=== PATIENT | female | born 1940 | race Caucasian/White ===

== ENCOUNTER → 2016-12-30 | Outpatient (CLI) | payer OTHER ==
--- NOTE | 2016-12-30 09:38 | MA ---
Screening Digital Mammogram With iCAD Indication: Routine screening. Mother diagnosed with breast cancer at the age of 60. Technique: Standard cephalocaudal and mediolateral oblique projections are obtained. This examinati on is processed by the iCAD computer-aided detection system. Comparison: November 2015, November 2014, November 2013, and November 2011 Breast density: Type B. Findings: CAD was reviewed. No suspicious microcalcifications, mass, or architectural distortion. Impression: Negative mammogram BI-RADS: 1 - Negative Recommendation: Routine screening is recommended in one year. [facility] will send a result letter to the patient. Negative mammography should not preclude additional workup of a clinically suspicious finding. The patient's information is entered into a reminder system with a target due date for her next mammo gram.
== END ==
LOC: BMCIMAGING 07:51
DX: Z12.31 Encounter for screening mammogram for malignant neoplasm of breast (principal); Z80.3 Family history of malignant neoplasm of breast
CPT/HCPCS: G0202

== ENCOUNTER 2017-08-07 11:33 | Emergency (ER) | payer OTHER ==
--- NOTE | 2017-08-07 11:57 | CPEKG ---
Heart Rate: 57 RR Interval: 1053 P-R Interval: 172 QRSD Interval: 144 QT Interval: 448 QTC Interval: 437 P [place]: 5 QRS [place]: 26 T Wave [place]: -10 EKG Severity - ABNORMAL ECG - EKG Impression: SINUS RHYTHM EKG Impression: RIGHT BUNDLE BRANCH BLOCK Electronically Signed By: Reilly Nixon 09-Aug-2017 09:50:55
--- NOTE | 2017-08-07 12:00 | EDPHY ---
HPI/HX/ROS/PE/MDM Narrative: CHIEF COMPLAINT:Imbalance, hypertension HPI: This patient is a 76 year old female arriving with her complaining of multiple episodes of imbalance and malaise onset one week ago. One week ago, she woke up at night and got out of bed feeling very unbalanced, and felt malaise the next day. This resolved by the afternoon. She has had similar feelings on other mornings since. Last night, she woke up feeling quite dizzy again, which she describes as a feeling of imbalance and lightheadedness. She denies a sensation of the room spinning. She has history of heart disease and noted her blood pressure was 154/115, which is high for her. She spoke with her primary care provider, who recommended she present for evaluation. She was able to walk in today, and denies falling at any point due to her imbalance. She denies chest pain, shortness of breath, nausea, vomiting, fever, or other recent illness. REVIEW OF SYSTEMS: Aside from elements discussed in the HPI, a comprehensive 10-point review of systems was reviewed and is negative. PMH: Stent placement. SOCIAL HISTORY: Retired. Formerly worked as an specialist physicians. . at bedside. PHYSICAL EXAM: General:Patient is alert, in no acute distress. ENT:Eyes are normal to inspection. ENT inspection normal. Neck: Normal inspection. Full range of motion. Respiratory:No respiratory distress. Breath sounds normal bilaterally. Cardiovascular: Regular rate and rhythm. Strong peripheral pulses. Normal cap refill. Abdomen:The abdomen is nontender to palpation. There are no peritoneal signs. There are normal bowel sounds. Back: Normal to inspection. No tenderness to palpation. Skin: Normal color. No rash. Warm and dry. Extremities: Normal appearance. Full range of motion. Neuro: Oriented x3. Normal motor function. Normal sensory function. No pronator drift. Normal [id number]. Normal [id number]. No dysdiadochokinesia. ED Course: 76 year old female presents with one week history of episodes of feeling imbalance and lightheadedness beginning in the middle of the night, generally resolved by afternoon. Physical exam unremarkable, she is neurologically intact. Plan for EKG, chest x-ray, and CT head. Plan for labs including CBC, BMP, UA, and Troponin. IV established. Plan to administer 500mL IV NS. MDM: This patient presents with non-specific lightheadedness, not consistent with vertigo, arrhythmia or stroke. We performed an extensive workup including CT head, troponin, EKG and other lab work as well as urinalysis, but these are all normal. I had extensive discussion with the patient regarding our findings and offered her admission to the hospital for further observation workup. She is responsible for the care of her somewhat disabled however, and would like to refuse admission at this time. We discussed strict return precautions. - Data Points Imaging Results: Imaging Impressions Chest X-Ray 08/07/17 12:08 Impression: No acute process. Clear lungs. Head CT 08/07/17 12:40 Impression: 1. Mild cerebral and cerebellar atrophy. 2. No acute hemorrhage, hydrocephalus, or mass effect. 3. Cerebrovascular atherosclerosis. 4. No definite acute infarct. 5. 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 6. Consider MRI of the brain without and with contrast enhancement, if there is continued clinical concern. Findings and recommendations discussed with Emergency Department physician, Vic Tompkins MD at 13:47 hour, 08/07/2017. Final report concurs with initial preliminary interpretation. Laboratory Results: Laboratory Results 08/07/17 12:02 08/07/17 12:02 08/07/17 08/07/17 08/07/17 12:50 12:02 12:02 WBC 7.00 10^3/uL 10^3/uL (3.80-9.50) RBC 4.46 10^6/uL 10^6/uL (4.18-5.33) Hgb 14.3 g/dL g/dL (12.6-16.3) Hct 42.0 % % (38.0-47.0) MCV 94.2 fL fL (81.5-99.8) MCH 32.1 pg pg (27.9-34.1) MCHC 34.0 g/dL g/dL (32.4-36.7) RDW 12.4 % % (11.5-15.2) Plt Count 199 10^3/uL 10^3/uL (150-400) MPV 10.3 fL fL (8.7-11.7) Neut % (Auto) 52.7 % % (39.3-74.2) Lymph % (Auto) 40.7 % % (15.0-45.0) [place] % (Auto) 5.0 % % (4.5-13.0) Eos % (Auto) 0.7 % % (0.6-7.6) Baso % (Auto) 0.6 % % (0.3-1.7) Nucleat RBC Rel Count 0.0 % % (0.0-0.2) Absolute Neuts (auto) 3.69 10^3/uL 10^3/uL (1.70-6.50) Absolute Lymphs (auto) 2.85 10^3/uL 10^3/uL (1.00-3.00) Absolute Monos (auto) 0.35 10^3/uL 10^3/uL (0.30-0.80) Absolute Eos (auto) 0.05 10^3/uL 10^3/uL (0.03-0.40) Absolute Basos (auto) 0.04 10^3/uL 10^3/uL (0.02-0.10) Absolute Nucleated RBC 0.00 10^3/uL 10^3/uL (0-0.01) Immature Gran % 0.3 % % (0.0-1.1) Immature Gran # 0.02 10^3/uL 10^3/uL (0.00-0.10) Sodium 141 mEq/L mEq/L (134-144) Potassium 4.1 mEq/L mEq/L (3.5-5.2) Chloride 106 mEq/L mEq/L (97-110) Carbon Dioxide 23 mEq/l mEq/l (22-31) Anion Gap 12 mEq/L mEq/L (8-16) BUN 20 mg/dL mg/dL (7-23) Creatinine 0.7 mg/dL mg/dL (0.6-1.0) Estimated GFR > 60 Glucose 101 mg/dL H mg/dL (70-100) Calcium 9.7 mg/dL mg/dL (8.5-10.4) Troponin I < 0.012 ng/mL ng/mL (0.000-0.034) Urine Color PALE YELLOW Urine Appearance CLEAR Urine pH 7.0 (5.0-7.5) Ur Specific [place] 1.003 (1.002-1.030) Urine Protein NEGATIVE (NEGATIVE) Urine Ketones NEGATIVE (NEGATIVE) Urine Blood 1+ H (NEGATIVE) Urine Nitrate NEGATIVE (NEGATIVE) Urine Bilirubin NEGATIVE (NEGATIVE) Urine Urobilinogen NEGATIVE EU EU (0.2-1.0) Ur Leukocyte Esterase NEGATIVE (NEGATIVE) Urine RBC 1-3 /hpf /hpf (0-3) Urine WBC 1-3 /hpf /hpf (0-3) Ur Epithelial Cells TRACE /lpf /lpf (NONE-1+) Urine Glucose NEGATIVE (NEGATIVE) Medications Given: Discontinued Medications Sodium Chloride (Ns) 500 mls @ 0 mls/hr IV EDNOW ONE; Wide Open PRN Reason: Protocol Stop: 08/07/17 12:09 Last Admin: 08/07/17 12:49 Dose: 500 mls General Time Seen by Provider: 08/07/17 11:47 Initial Vital Signs: Initial Vital Signs Temperature (C) 36.7 C 08/07/17 11:39 Heart Rate 55 L 08/07/17 11:39 Respiratory Rate 16 08/07/17 11:39 Blood Pressure 179/73 H 08/07/17 11:39 O2 Sat (%) 96 08/07/17 11:39 O2 Delivery Mode Room Air Allergies/Adverse Reactions: SHELL FISH Allergy (Severe, Uncoded 12/15/09 08:25) Swelling/neck,face,throat Home Medications: Medication Instructions Recorded Francisco 08/07/17 Dejah 08/07/17 Departure - Departure Disposition: Home, Routine, Self-Care Clinical Impression: Lightheadedness Condition: Good Instructions: Lightheadedness (ED) Additional Instructions: Follow-up closely with Dr. Merida, within the next 72 hours. Return to the ED for fever, headache, passing out, chest pain, shortness of breath or other concerns. Referrals: Meagan Merida MD [Primary Care Provider] - As per Instructions Report Scribed for: Vic Tompkins Report Scribed by: Nemo Oconnell Date of Report: 08/07/17 Time of Report: 12:07 Physician Review and Approval Statement: Portions of this note were transcribed by an ED scribe. I personally performed the history, physical exam, and medical decision making; and confirm the accuracy of the information in the transcribed note.
[2017-08-07] MEDS ORDERED: NS 500 ML IV ONE (12:08)
[2017-08-07 12:15] LABS: % IMMATURE GRANULYOCYTES 0.3 % (0.0-1.1); ABSOLUTE IMMATURE GRANULOCYTES 0.02 10^3/uL (0.00-0.10); ADD DIFF? NO; ADD MORPH? NO; ADD SCAN? NO; ATYPICAL LYMPHOCYTE FLAG 20 (0-99); FRAGMENT RBC FLAG 0 (0-99); HEMOGLOBIN 14.3 g/dL (12.6-16.3); LEFT SHIFT FLG 0 (0-99); LIPEMIA HEMOLYSIS FLAG 90 (0-99); MEAN CELL HEMOGLOBIN 32.1 pg (27.9-34.1); MEAN CELL VOLUME 94.2 fL (81.5-99.8); MEAN PLATELET VOLUME 10.3 fL (8.7-11.7); PLATELET CLUMPS FLAG 0 (0-99); PLATELET COUNT 199 10^3/uL (150-400); RED BLOOD CELL COUNT 4.46 10^6/uL (4.18-5.33); RED CELL DISTRIBUTION WIDTH 12.4 % (11.5-15.2)
[2017-08-07 12:43] LABS: ANION GAP 12 mEq/L (8-16); CALCIUM 9.7 mg/dL (8.5-10.4); CARBON DIOXIDE 23 mEq/l (22-31); CHLORIDE 106 mEq/L (97-110); CREATININE 0.7 mg/dL (0.6-1.0); GLOMERULAR FILTRATION RATE > 60; GLUCOSE 101 mg/dL (70-100); POTASSIUM 4.1 mEq/L (3.5-5.2); SODIUM 141 mEq/L (134-144)
[2017-08-07 12:54] LABS: TROPONIN I < 0.012 ng/mL (0.000-0.034)
[2017-08-07 13:13] LABS: COLOR PALE YELLOW; LEUKOCYTE ESTERASE,URINE NEGATIVE (NEGATIVE); NITRITE,URINE NEGATIVE (NEGATIVE)
[2017-08-07 14:16] VITALS: BP 165/74; PULSE 66; RESP 16; TEMP 97.5; O2SAT 96
== END 2017-08-07 14:18 | disposition home or self-care (01) ==
DX: R42 Dizziness and giddiness (principal); E86.9 Volume depletion, unspecified

== ENCOUNTER → 2017-08-27 | Outpatient (CLI) | payer OTHER ==
[~2017-08-27] MED LIST: GADOBUTROL 10 ML VIAL IVP ONE
== END ==
LOC: FIMAGING 09:12
PROVIDERS: ATTEND Internal Medicine
DX: Z53.29 Procedure and treatment not carried out because of patient's decision for other reasons (principal)
CPT/HCPCS: A9585

== ENCOUNTER → 2018-01-01 | Outpatient (CLI) | payer OTHER | LOC: BMCIMAGING 09:31 | PROVIDERS: ATTEND Internal Medicine | DX: Z12.31 Encounter for screening mammogram for malignant neoplasm of breast (principal); Z80.3 Family history of malignant neoplasm of breast ==